=== PATIENT | female | born 1985 | race Asian ===

== ENCOUNTER → 2016-08-22 | Outpatient (CLI) | payer OTHER ==
--- NOTE | 2016-08-22 12:49 | DX ---
Left wrist, 4 views. HISTORY: Hurt wrist last night during kickboxing. FINDINGS: Normal mineralization and alignment. No evidence for acute fracture or dislocation. No sign ificant joint narrowing, periarticular erosion, periarticular spurring. Impression: Unremarkable left wrist.
== END ==
LOC: BMCIMAGING 12:06
PROVIDERS: ATTEND Family Medicine
DX: M25.532 Pain in left wrist (principal)

== ENCOUNTER → 2016-10-29 | Outpatient (CLI) | payer OTHER | LOC: BMCIMAGING 12:13 | PROVIDERS: ATTEND Family Medicine | DX: M25.572 Pain in left ankle and joints of left foot (principal) ==

== ENCOUNTER → 2017-02-23 | Day surgery (SDC) | payer OTHER ==
--- NOTE | 2017-02-20 18:17 | GHP ---
[f rep st] PREOP HISTORY AND PHYSICAL DATE OF ADMISSION: 02/23/2017 ANTICIPATED DATE OF SURGERY: 02/23/2017. PROCEDURE TO BE PERFORMED: Suction dilation and curettage. DIAGNOSIS: Missed . HISTORY OF PRESENT ILLNESS: The patient is a 31-year-old, 1, para 0, with a last menstrual period of 12/18/2016, who presented for an ultrasound for viability of her on 02/09/2017. She had some 1st trimester bleeding. On that ultrasound there was a gestational sac with a yolk sa c, pole measuring 5 weeks 6 days without heart tones, and the gestational sac was irregu larly shaped. There was a large subchorionic hemorrhage. Patient had had an appropriate rise in be ta hCG, and as she had low progesterone level of 11.3, she was started on a progesterone supplementa tion and had a followup ultrasound in a week, on 02/19/2017. The ultrasound revealed a flattened ge stational sac with numerous complex echoes. A 3 mm embryo was seen with no cardiac activity. Diagn osis of missed was made. The patient was given treatment options of medical management gabby moi surgical management versus expectant management. Patient chose surgical management with a sucti on dilation curettage, and this is scheduled for Thursday02/23/2017. Patient is a G zero, this is he r first . Patient has no significant past gynecological history with regular monthly perio ds, and her last menstrual period was 12/18/2016. Denies history of abnormal Paps or STDs. No sign ificant past medical history, surgical history, or family history. REVIEW OF SYSTEMS: Her 10-point review of systems was negative for any complaints. No vaginal blee ding. No abdominal pain or any other symptoms. SOCIAL HISTORY: She is . She works as a pharmacist at [employer]. Denies tobacco. Social alcohol . No drug use. FAMILY HISTORY: Noncontributory. OBJECTIVE: VITAL SIGNS: Blood pressure is 118/68, weight is 136. GENERAL: She is a well-develope d, well-nourished, female, in no acute distress. LUNGS: Clear to auscultation bilaterally. HEART: Regular rate and rhythm. No murmurs. ABDOMEN: Soft, nontender, nondistended. Normal ganga l sounds. PELVIC: Will be deferred for the operating room. ASSESSMENT AND PLAN: A 31-year-old, 1, para 0, who is 9 weeks by dates with a missed aborti on. She will be consented for the procedure. The risks and benefits, including bleeding, infection , damage to the uterus (including possible risk of perforation), damage to other organs if perforati on were to occur, risk of incomplete removal with need for spontaneous expulsion or further procedur es at a later time, and compromise of future fertility. She understood these risks and benefits. /[id number]/MODL
[~2017-02-23] MED LIST: AMMONIA AROMATIC 1 EACH AMP IH ONE; DOXYCYCLINE INJ 100 MG in D5W 250 ML IV ONE; KETOROLAC 30 MG/1 ML SDV IVP PRN; LR 1,000 ML IV ONE; METHYLERGONOVINE MAL 0.2 MG/ML INJ ONE; MIDAZOLAM 2 MG/2 ML VIAL IVP ONE; MIDAZOLAM 2 MG/2 ML VIAL ONE; MISOPROSTOL 200 MCG TAB ONE; NALOXONE HCL 0.4 MG/ML INJ IVP PRN; ONDANSETRON 4 MG/2 ML VIAL IVP PRN; OXYTOCIN 10 UNIT/ML VIAL ONE; PROPOFOL/EMULSION 500 MG/50 ML BOTTLE IV ONE; SILVER NITRATE APPLICATOR 1 APPL TP ONE; TERBUTALINE SULFATE 1 MG/ML VIAL ONE
--- NOTE | 2017-02-23 09:33 | PDANEPAE ---
ANE History of Present Illness Missed Spontaneous at 8 weeks gestation ANE Past Medical History - Pulmonary History Hx Oxygen in Use at Home: No Hx Sleep Apnea: No - Endocrine History Hx Diabetes: No - Chronic Pain History Chronic Pain: No ANE Patient History - Allergies Allergies/Adverse Reactions: DOGS Allergy (Mild, Uncoded 04/29/12 17:40) SNEEZING/ITCHY EYES - Smoking Hx Smoking Status: Never smoked ANE Labs/Vital Signs - Vital Signs Height: 152.4 cm Weight: 62.142 kg
--- NOTE | 2017-02-23 09:34 | POSTANESTH ---
Post Anesthetic Evaluation Cardiovascular Status: Normal, Stable Respiratory Status: Normal, Stable Level of Consciousness/Mental Status: Can Participate in Eval Pain Control: Adequate, Prn Tx Ordered Nausea/Vomiting Control: Adequate, Prn Tx Ordered Complications Possibly Related to Anesthesia: None Noted Notes: BP elevated past Methergine, will follow in PACU
--- NOTE | 2017-02-23 11:18 | GOP ---
[f rep st] OPERATIVE REPORT DATE OF OPERATION: 02/23/2017 SURGEON: Leidy Marrufo MD ANESTHESIA: General. ANESTHESIOLOGIST: Yehuda Schuler M.D. PREOPERATIVE DIAGNOSIS: Intrauterine with a missed at 9 weeks by dates, 7 weeks by size. POSTOPERATIVE DIAGNOSIS: Missed . PROCEDURE PERFORMED: Suction dilation curettage. FINDINGS: SPECIMENS: Pathologic specimen will be products of conception. ESTIMATED BLOOD LOSS: For the procedure was 100 mL. INDICATIONS: The patient is a 31-year-old 1, para 0, with a last menstrual period of 2016, who presented for an ultrasound for viability of on 02/09/2017. She had first trime ster bleeding. On that ultrasound, she had a gestational sac with a yolk sac and a pole measu ring 5 weeks and 6 days, without heart tones. Gestational sac was irregularly shaped and ther e was a large subchorionic hemorrhage. The patient was given progesterone supplementation and had a followup ultrasound a week later, which showed a flattened gestational sac, multiple numerous echoe s and no heart tones with heartbeat. The diagnosis of missed was made. The patient was given treatment options of medical management versus surgical management versus expectant, and s he desired surgical management with a suction dilation and curettage. The patient was consented for the procedure. She understood the risks and benefits, the risks inclu ding bleeding, infection, damage to the uterus including possible risk of perforation, damage to oth er organs if perforation were to occur, incomplete treatment with retained tissue, need for spontane ous expulsion and/or repeat procedure at a later time, and compromise of future fertility. The claudia ent understood these risks and benefits, and agreed to proceed. DESCRIPTION OF PROCEDURE: The patient was taken to the operating room where she was placed under ge neral anesthesia without difficulty. She was prepped and draped in the dorsal lithotomy position. A WHO time-out was performed. An open-sided speculum was placed in the vagina and a Bryant tenaculum was used to grasp the anterio r lip of the cervix. A uterine sound was gently advanced from the cervix to the fundus, and the kob[place] wil sounded to 8 cm. The cervix was then progressively dilated with Servin dilators to a #8. A #8 c urved suction curette was then gently advanced to the fundus, suction was applied and tissue was obt ained with several passes of the suction device. Sharp curettage was then performed in a clockwise fashion. There was a fair amount of active bleedi ng with curettage and no tissue was palpated. Suction was applied again and there was no tissue, ju st blood. The patient was given a dose of IM methargen as well as Pitocin was placed in her IV fluids. Transvaginal ultrasound was performed and there was no tissue, just further blood. One final passage of the suction device was performed, and there was again assurance that no further tissue was obtained and the uterus was clamping down with the medication, and good hemostasis was o btained. The tenaculum was removed. There was no further bleeding. The patient tolerated the procedure well . Sponge, lap, needle, and instrument counts were correct x2. The patient went to the recovery elza in good condition. FLUIDS REPLACED: 1000 mL. URINE OUTPUT: Not measured. /[id number]/MODL
== END | disposition home or self-care (01) ==
LOC: FOBOP 05:56
PROVIDERS: ATTEND Obstetrics & Gynecology
PROC: 10D17ZZ Extraction of Products of Conception, Retained, Via Natural or Artificial Opening (ICD-10-PCS; principal; 2017-02-23)
DX: O02.1 Missed abortion (principal)
CPT/HCPCS: J1885; J2210; J2250; J2704; J3105

== ENCOUNTER → 2017-05-05 | Outpatient (CLI) | payer OTHER | LOC: BMCIMAGING 16:26 | PROVIDERS: ATTEND Physician Assistant | DX: M25.551 Pain in right hip (principal) ==

== ENCOUNTER → 2017-05-11 | Outpatient (CLI) | payer OTHER | LOC: FIMAGING 10:33 | PROVIDERS: ATTEND Physician Assistant | DX: M25.851 Other specified joint disorders, right hip (principal) ==

== ENCOUNTER 2018-12-16 16:10 | Inpatient (IN) | payer OTHER ==
[2018-12-16] MEDS ORDERED: OXYTOCIN/RINGERS LACTATE 1,000 ML IV PRN (16:18)
[2018-12-16] MEDS ORDERED: EPSOM SALT 454 GM TP PRN (16:18)
[2018-12-16] MEDS ORDERED: MISOPROSTOL 200 MCG TAB PR PRN (16:18)
[2018-12-16] MEDS ORDERED: LIDOCAINE 1% 300 MG/30 ML SDV SC PRN (16:18)
[2018-12-16] MEDS ORDERED: OLIVE OIL 118 ML BTL MISC PRN (16:18)
[2018-12-16] MEDS ORDERED: IBUPROFEN 600 MG TAB PO PRN (16:18)
[2018-12-16] MEDS ORDERED: LIDOCAINE 1% 300 MG/30 ML SDV ONE (16:45)
[2018-12-16] MEDS ORDERED: OLIVE OIL 118 ML BTL MISC ONE (16:45)
[2018-12-16] MEDS ORDERED: AMMONIA AROMATIC 1 EACH AMP IH ONE (16:46)
[2018-12-16] MEDS ORDERED: OXYTOCIN 10 UNIT/ML VIAL ONE (16:46)
[2018-12-16] MEDS ORDERED: TERBUTALINE SULFATE 1 MG/ML VIAL ONE (16:46)
[2018-12-16] MEDS ORDERED: MISOPROSTOL 200 MCG TAB ONE (16:46)
[2018-12-16 17:10] LABS: PLATELET COUNT 142 10^3/uL (150-400)
[2018-12-16] MEDS ORDERED: hydrALAZINE 20 MG/ML VIAL IVP ONE ×2 (17:45→23:00)
[2018-12-16] MEDS: LR 1,000 ML IV PRN ×2 (18:10→22:42)
[2018-12-16] MEDS ORDERED: fentaNYL 2MCG/ML/BUP 0.1% RTU 100 ML BAG EP ONE (18:36)
[2018-12-16] MEDS ORDERED: PHENYLEPHRINE HCL 100 MCG/ML SYR ONE (18:36)
--- NOTE | 2018-12-16 18:41 | GHP ---
[f rep st] HISTORY AND PHYSICAL DATE OF ADMISSION: 12/16/2018 ADMITTING DIAGNOSIS: 1. Intrauterine at 38 2/7 weeks 2. Active labor 3. Gestational Hypertension, ?chronic hypertension HISTORY OF PRESENT ILLNESS: Patient is a 33-year-old, 2, para 0-0-1-0 at 38 weeks and 2 days with estimated due date 12/28/2018 by LMP 03/23/2018, and consistent with ultrasound at 10 weeks and 4 days. The patient presented to my office today with complaints of contractions that started at 0230 this morning. They were every 7 to 10 minutes and she states pain 6/10. Denies any leakage of fluid or any vaginal bleeding. States good movement. The patient was seen in my office earlier today, and found to be 1-2 cm, 70% effaced, and -2 station. Membranes were stripped. Labor precautions given. Two hours later, patient presented back to my office stating contractions are now closer every 3- 4 minutes and the pain is about 8/10. She notes some pink-red spotting, but no leakage of fluid and baby is still moving well. On exam, she was now 4 cm, 80% effaced, and -2 station, bulging bag of jimenez. The patient was sent over to Labor and Delivery for admission. Labor and Delivery was notified. The patient denies any headaches, visual changes or any RUQ/epigastric pain. The patient was initially seen in her first trimester by [facility] and had en elevated blood pressure of 134/92 at 10 weeks, 2 days and was started on Labetalol twice daily. The patient was non-compliant and stopped Labetalol in July 2018. She was told to transfer care to [facility] secondary to chronic hypertension in and risk of developing superimposed preeclampsia. There were some elevated blood pressures in 2nd trimester, 130-140s over 90-100s and then 3rd trimester blood pressures were lower until 32-34 weeks and consistently 130/80s. The patient had no symptoms and continues to have no symptoms at this time. Initial baseline PIH labs were normal with no proteinuria and at 28 weeks, another set of baseline labs were done that were normal, except there was an elevated 24-hour urine protein at 338 mg. Growth ultrasounds in third trimester at 32 and 35 weeks revealed normal growth at 31% and 32% with normal fluid. The patient is advanced maternal age and had negative NIPT and normal anatomy scan. She has history of infertility secondary to PCOS, but this was a spontaneous conception. There was an elevated 1-hour Glucola of 131 and then repeated it was 107. The patient did receive Tdap in 11/03/18. GBS culture is negative. PAST OB HISTORY: SAB in 2017. MENSTRUAL HISTORY: Age of menarche: 10. Cycles are every 28 days for 4-6 days. LMP 03/23/2018. The patient denies a history of any abnormal Pap smears or any exposure to any STDs. CURRENT MEDICATIONS: Include vitamins and vitamin D. ALLERGIES: No known drug allergies. PAST MEDICAL HISTORY: Remarkable for PCOS, infertility, elevated prolactin and likely chronic hypertension. PAST SURGICAL HISTORY: D and C in 2015 and tibia repair in 2012. PAST FAMILY HISTORY: Mother and Father: Hypertension. Father and maternal grandfather: Hypercholesterolemia. Paternal grandmother: Diabetes. SOCIAL HISTORY: Patient is and lives with her , Brandin. She is a pharmacist. Denies any alcohol, tobacco or any illicit drug use currently. LABS: First trimester H and H, 14.9 and 43.8, platelets 225. Blood type B-positive, antibody negative. RPR nonreactive. Rubella unknown. Hepatitis B surface antigen negative. HIV nonreactive. Urine drug screen. UA and culture negative. Pap smear negative 01/2016 with negative HPV. Gonorrhea and chlamydia cultures negative 06/2018. Councyl was negative 06/03/2018. Single AFP negative. Third trimester H and H, 13.0 and 38.4, platelets 195. One-hour Glucola 131, and then repeated 107. PIH labs normal. 24-hour urine elevated at 338 mg. GBS culture is negative. REVIEW OF SYSTEMS: A 10-point review of systems was negative. Pertinent positives under HPI. PHYSICAL EXAMINATION: VITAL SIGNS: On admission, the patient is afebrile at 37.2, respirations 16, heart rate 83, initial blood pressure was 1179/119, 68/ 103, 152/103, 146/104, 154/109, 141/99, 136/93 about 10-15 minutes apart. Most recent blood pressure is 135/95 on her left side without treatment. GENERAL: The patient is well-nourished, well-developed female. Alert and oriented x3. Mild distress secondary to pain with contractions. SKIN: Warm, dry without rash. NEURO: Grossly intact. CARDIOVASCULAR: Regular rate and rhythm. LUNGS : Clear to auscultation bilaterally. ABDOMEN: Gravid, soft, and nontender. PELVIC: On exam, 4 cm dilated, 80% effaced, -2 station, bulging bag of jimenez, vertex. EXTREMITIES: There is pedal edema noted. No calf tenderness. 2+ plantar reflexes and no clonus. ASSESSMENT/PLAN: Patient is a 33-year-old, 2, para 0-0-1-0 at 38 weeks , 2 days who presents in active labor with elevated blood pressures. 1. Admit to Labor and Delivery for expectant management. 2. GBS culture is negative, no prophylactic antibiotics are needed. 3. With elevated blood pressures upon admission, PIH labs were obtained: H and H,14.9 and 42.6, platelets are 142, creatinine 0.5, AST 23, ALT 17, LDH 544. P to C ratio was 0.14 consistent with 136 mg. Patient is asymptomatic at this time. BPs did improve without treatment when she was placed on her left side. Will not start MgSO4 at this time since BPs improved on their own, pt is asymptomatic without severe features and PIH labs are normal. 4. Consulted with [facility] who agrees with the plan of not starting MgSO4 at this time, but would recommend starting it if severe features develop and/or BPs become elevated in severe range. Will continue to closely monitor. 5. Patient desires an epidural for pain. 6. Anticipate . /[id number]/MODL MTDD
[2018-12-16] MEDS ORDERED: PHENYLEPHRINE HCL 100 MCG/ML SYR IVP PRN (19:11)
--- NOTE | 2018-12-16 19:11 | PREANESOB ---
Obstetric Pre-Anesthesia Info - General Info Proposed Procedure: JOVANY : 2 Para: 0 LIGIA: 12/28/18 Gestational Age: 38 week(s) and 2 day(s) - Info Status: Full Term, Palmer Monitors: External FHR Pattern: Reassuring - Labor Status Cervical Dilation per last OB SVE: 4 PIH: Mild (No current treatment.) Indications for Labor Analgesia: Pain Control Labor Epidural: Proposed Anesthesia Allergies/Adverse Reactions: Allergy/AdvReac Type Severity Reaction Status Date / Time DOGS Allergy Mild SNEEZING/ITCHY Uncoded 04/29/12 17:40 EYES Home Medications: Medication Instructions Recorded Caplet 12/16/18 Visit Medications: Generic Name Dose Route Start Last Admin Trade Name Freq PRN Reason Stop Dose Admin Lactated Ringer's 1,000 mls @ 0 mls/hr 12/16/18 16:18 12/16/18 18:10 Lr IV 12/17/18 16:17 1,000 mls PRN PRN Administration SEE PROTOCOL CONDITIONS Protocol Per Protocol Oxytocin/Lactated Ringer's 1,000 mls @ 125 mls/hr 12/16/18 16:18 Pitocin 20 Units/Lr (Premix) IV PRN PRN Post bleeding Ibuprofen 600 mg 12/16/18 16:18 Motrin PO ONCE PRN post , pain Lidocaine HCl 300 mg 12/16/18 16:18 Lidocaine Hcl 1% SC 06/14/19 16:17 ONCE PRN episiotomy Magnesium Sulfate 454 gm 12/16/18 16:18 Epsom Salt TP 06/14/19 16:17 Q1H PRN perineal discomfort Misoprostol 800 - 1,000 mcg 12/16/18 16:18 Cytotec CA ONCE PRN Vaginal Atony/Bleeding Damascus Oil 118 ml 12/16/18 16:18 Sweet Oil MISC 06/14/19 16:17 ONCE PRN perineal massage Discontinued Medications Generic Name Dose Route Start Last Admin Trade Name Freq PRN Reason Stop Dose Admin Ammonia (Aromatic Spirit) Confirm 12/16/18 16:46 Ammonia Aromatic Administered 12/16/18 16:47 Dose 1 each IH .STK-MED ONE Fentanyl/Bupivacaine HCl Confirm 12/16/18 18:36 Fentanyl/Bupivacaine/Ns 2 Mcg/Ml 0.1% (Premix Administered 12/16/18 18:37 Dose 100 ml EP .STK-MED ONE Hydralazine HCl 5 mg 12/16/18 17:45 Apresoline IVP 12/16/18 17:46 ONCE ONE Lidocaine HCl Confirm 12/16/18 16:45 Lidocaine Hcl 1% Administered 12/16/18 16:46 Dose 300 mg .ROUTE .STK-MED ONE Misoprostol Confirm 12/16/18 16:46 Cytotec Administered 12/16/18 16:47 Dose 1,000 mcg .ROUTE .STK-MED ONE Damascus Oil Confirm 12/16/18 16:45 Sweet Oil Administered 12/16/18 16:46 Dose 118 ml MISC .STK-MED ONE Oxytocin Confirm 12/16/18 16:46 Pitocin Administered 12/16/18 16:47 Dose 40 unit .ROUTE .STK-MED ONE Phenylephrine HCl Confirm 12/16/18 18:36 Neosynephrine Administered 12/16/18 18:37 Dose 1,000 mcg .ROUTE .STK-MED ONE Terbutaline Sulfate Confirm 12/16/18 16:46 Brethine Administered 12/16/18 16:47 Dose 1 mg .ROUTE .STK-MED ONE - Anesthesia History Response to Local Anesthetics: Normal Anesthesia & Operative History: No Prior Problems - Vital Signs Height/Weight (Nursing): Height 152.4 cm Weight 73.709 kg - Focused Exam Neck exam: FROM Mallampati Score: Class 2 Mouth exam: normal dental/mouth exam Pulmonary: no respiratory distress, no rales or rhonchi, clear to auscultation Cardiovascular: regular rate and rhythym, no murmur, rub, or gallop Labs: 12/16/18 16:45 12/16/18 16:45 Patient ABO/Rh B POSITIVE 12/16/18 16:45 Uric Acid 5.0 mg/dL (2.5-6.8) 12/16/18 16:45 Total Bilirubin 0.3 mg/dL (0.1-1.4) 12/16/18 16:45 Conjugated Bilirubin 0.0 mg/dL (0.0-0.5) 12/16/18 16:45 Unconjugated Bilirubin 0.3 mg/dL (0.0-1.1) 12/16/18 16:45 AST 23 IU/L (14-46) 12/16/18 16:45 ALT 17 IU/L (9-52) 12/16/18 16:45 Lactate Dehydrogenase 544 IU/L (313-618) 12/16/18 16:45
[2018-12-16] MEDS ORDERED: LR 500 ML IV SCH (19:30)
--- NOTE | 2018-12-16 19:52 | OBPROG ---
Labor Progress Note Assessment/Plan: Assessment: 33 y/o @ 38 2/7 wks in active labor with elevated BPs Plan: Continue expectant management Pt is comfortable, s/p epidural BPs 130-150/80-90s, will cont to closely monitor; pt remains asymptomatic AROM-large amount clear fluid noted FHTs- Cat I tracing, reassuring Will reassess in a few hours for cervical change 12/16/18 19:47 Subjective/Intrapartum Course: Pt is comfortable, s/p epidural with no complaints. Denies any HAs, visual changes, or any RUQ/epigastric pain. 12/16/18 20:05 Objective: 12/16/18 16:45 12/16/18 16:45 Patient ABO/Rh B POSITIVE 12/16/18 16:45 Uric Acid 5.0 mg/dL (2.5-6.8) 12/16/18 16:45 Total Bilirubin 0.3 mg/dL (0.1-1.4) 12/16/18 16:45 Conjugated Bilirubin 0.0 mg/dL (0.0-0.5) 12/16/18 16:45 Unconjugated Bilirubin 0.3 mg/dL (0.0-1.1) 12/16/18 16:45 AST 23 IU/L (14-46) 12/16/18 16:45 ALT 17 IU/L (9-52) 12/16/18 16:45 Lactate Dehydrogenase 544 IU/L (313-618) 12/16/18 16:45 - SVE Dilation (cm): 6 Effacement (%): 80 Station: -1 Membranes: AROM Amniotic Fluid Color: Clear (large amount fluid noted) - Contraction Pattern Assessment Current Contraction Pattern: Regular (q3-4 min) - FHR Assessment Palmer FHR (bpm): 135 FHR Pattern Variability: Moderate FHR Category: 1 - Procedures Non-surgical Procedures: Amniotomy - AP Antepartum Course: Likely Chronic HTN-stopped Labetalol 07/2018-was started on it in first trimester by midwives and noncompliant; elev BPs in second trimester 130-140/80- 90s; growth u/s in third trimester with EFW 31% and normal fluid PCOS, infertility and elevaterd prolactin-conceived spontaneously AMA with neg NIPT and normal anatomy scan GBS negative Rubella status unknown 12/16/18 20:04 Oxytocin Orders Assessment - Pre-Induction/Augmentation Assessment Gestational Age: 38 week(s) and 2 day(s) ICD10 Worksheet Patient Problems: Problems Problem Status Onset Chronic hypertension affecting Acute Normal labor and delivery Acute - ICD10 Problem Qualifiers (1) Normal labor and delivery (2) Chronic hypertension affecting
--- NOTE | 2018-12-16 21:52 | OBPROG ---
Labor Progress Note Assessment/Plan: Assessment: 33 y/o @ 38 2/7 wks in active labor with elevated BPs Plan: Continue expectant management Pt is starting to feel an increase in pressure and intermittent rectal pressure On exam, SVE: 6-7/90/-1 IUPC placed without difficulty; if not adequate labor will augment with Pitocin FHTs - Cat I tracing, reassuring BPs stable at 130-140/80-90s, will cont to closely monitor Will reassess in a few hours for cervical change or sooner prn 12/16/18 21:46 Subjective/Intrapartum Course: Pt is comfortable, s/p epidural with no complaints. Denies any HAs, visual changes, or any RUQ/epigastric pain. 12/16/18 20:05 Objective: 12/16/18 16:45 12/16/18 16:45 Patient ABO/Rh B POSITIVE 12/16/18 16:45 Uric Acid 5.0 mg/dL (2.5-6.8) 12/16/18 16:45 Total Bilirubin 0.3 mg/dL (0.1-1.4) 12/16/18 16:45 Conjugated Bilirubin 0.0 mg/dL (0.0-0.5) 12/16/18 16:45 Unconjugated Bilirubin 0.3 mg/dL (0.0-1.1) 12/16/18 16:45 AST 23 IU/L (14-46) 12/16/18 16:45 ALT 17 IU/L (9-52) 12/16/18 16:45 Lactate Dehydrogenase 544 IU/L (313-618) 12/16/18 16:45 - SVE Dilation (cm): 7 (6-7) Effacement (%): 90 Station: -1 Membranes: AROM Amniotic Fluid Color: Clear (large amount fluid noted) - Contraction Pattern Assessment Current Contraction Pattern: Regular (q3-4 min) - FHR Assessment Palmer FHR (bpm): 130 FHR Pattern Variability: Moderate FHR Category: 1 - Procedures Non-surgical Procedures: Amniotomy, IUPC - AP Antepartum Course: Likely Chronic HTN-stopped Labetalol 07/2018-was started on it in first trimester by midwives and noncompliant; elev BPs in second trimester 130-140/80- 90s; growth u/s in third trimester with EFW 31% and normal fluid PCOS, infertility and elevaterd prolactin-conceived spontaneously AMA with neg NIPT and normal anatomy scan GBS negative Rubella status unknown 12/16/18 20:04 Oxytocin Orders Assessment - Pre-Induction/Augmentation Assessment Gestational Age: 38 week(s) and 2 day(s) ICD10 Worksheet Patient Problems: Problems Problem Status Onset Chronic hypertension affecting Acute Normal labor and delivery Acute - ICD10 Problem Qualifiers (1) Normal labor and delivery (2) Chronic hypertension affecting
[2018-12-16] MEDS ORDERED: LR 500 ML IV PRN (22:02)
[2018-12-16] MEDS ORDERED: CALCIUM GLUC 10% 1 GM/10 ML VIAL IVP PRN (22:21)
--- NOTE | 2018-12-16 22:25 | OBPROG ---
Labor Progress Note Assessment/Plan: Assessment: 33 y/o @ 38 2/7 wks in active labor now with severe-range BPs Plan: Will start MgSO4 per protocol for seizure prophylaxis-4gm loading dose then 2gm maintenance Cullen already in place with strict I&Os, NPO except meds- pt is aware and understands risks Will given Hydralazine with BPs >160/110 prn Cont to closely monitor BPs FHTs - Category II strip with mild intermittent variable decels Will augment with Pitocin since MVUs 110-125 To keep total IVFs at 125cc/hr 12/16/18 22:30 Subjective/Intrapartum Course: Pt is comfortable, s/p epidural with no complaints. Denies any HAs, visual changes, or any RUQ/epigastric pain. 12/16/18 20:05 12/16/18 22:31 Pt is c/o pain in her lower abdomen with ctx's and is still feeling pressure Objective: 12/16/18 16:45 12/16/18 16:45 Patient ABO/Rh B POSITIVE 12/16/18 16:45 Uric Acid 5.0 mg/dL (2.5-6.8) 12/16/18 16:45 Total Bilirubin 0.3 mg/dL (0.1-1.4) 12/16/18 16:45 Conjugated Bilirubin 0.0 mg/dL (0.0-0.5) 12/16/18 16:45 Unconjugated Bilirubin 0.3 mg/dL (0.0-1.1) 12/16/18 16:45 AST 23 IU/L (14-46) 12/16/18 16:45 ALT 17 IU/L (9-52) 12/16/18 16:45 Lactate Dehydrogenase 544 IU/L (313-618) 12/16/18 16:45 - SVE Membranes: AROM Amniotic Fluid Color: Clear (large amount fluid noted) - Contraction Pattern Assessment Current Contraction Pattern: Regular (q3-4 min) - FHR Assessment Palmer FHR (bpm): 130 FHR Pattern Variability: Moderate FHR Category: 2 (mild, intermittent variable decels) - Procedures Non-surgical Procedures: Amniotomy, IUPC - AP Antepartum Course: Likely Chronic HTN-stopped Labetalol 07/2018-was started on it in first trimester by midwives and noncompliant; elev BPs in second trimester 130-140/80- 90s; growth u/s in third trimester with EFW 31% and normal fluid PCOS, infertility and elevaterd prolactin-conceived spontaneously AMA with neg NIPT and normal anatomy scan GBS negative Rubella status unknown 12/16/18 20:04 Oxytocin Orders Assessment - Pre-Induction/Augmentation Assessment Gestational Age: 38 week(s) and 2 day(s) - Induction/Augmentation Consent Risks/Benefits of Procedure Reviewed/Pt Agrees to Proceed: Yes ICD10 Worksheet Patient Problems: Problems Problem Status Onset Chronic hypertension affecting Acute Normal labor and delivery Acute - ICD10 Problem Qualifiers (1) Normal labor and delivery (2) Chronic hypertension affecting
[2018-12-16] MEDS ORDERED: MAGNESIUM SULF 4 GM/WATER 100 ML IV ONE (22:29)
[2018-12-16] MEDS ORDERED: OXYTOCIN/RINGERS LACTATE 500 ML IV SCH (22:30)
[2018-12-16] MEDS: Mag Sulf 500 ML IV SCH (23:28)
[2018-12-16] MEDS: fentaNYL 2MCG/ML/BUP 0.1% RTU 100 ML EP SCH (23:30)
[2018-12-17] MEDS ORDERED: BUPIVACAINE 0.25% 10 ML SDV ONE (00:01)
[2018-12-17] MEDS ORDERED: ONDANSETRON 4 MG/2 ML VIAL IVP PRN (01:51)
--- NOTE | 2018-12-17 02:03 | OBPROG ---
Labor Progress Note Assessment/Plan: Assessment: 33 y/o @ 38 2/7 wks in active labor now with severe-range BPs Plan: Continue current management Pt now more comfortable, was bolused by Dr. Norton at 0015-still notes rectal pressure, but only during ctx's SVE by RN: 7-8/90/0 Pitocin at 4 mu/min; MVUs now adequate at 212-250 MgSO4 at 2gm/hr; UO over last 3 hours 45, 35 and 30 and bloody-will cont to closely monitor; fluids BPs after bolus 107-137/65-86 Will reassess in 2 hours or sooner prn 12/17/18 01:52 Subjective/Intrapartum Course: 12/16/18 20:05 Pt is comfortable, s/p epidural with no complaints. Denies any HAs, visual changes, or any RUQ/epigastric pain. 12/16/18 22:31 Pt is c/o pain in her lower abdomen with ctx's and is still feeling pressure 12/17/18 02:03 Pt is more comfortable now after bolus. She is feeling dizzy with lower BPs and has some nausea. Still notes rectal pressure, but only with ctx's. Denies any HAs, visual changes or RUQ pain. Objective: 12/16/18 16:45 12/16/18 16:45 Patient ABO/Rh B POSITIVE 12/16/18 16:45 Uric Acid 5.0 mg/dL (2.5-6.8) 12/16/18 16:45 Total Bilirubin 0.3 mg/dL (0.1-1.4) 12/16/18 16:45 Conjugated Bilirubin 0.0 mg/dL (0.0-0.5) 12/16/18 16:45 Unconjugated Bilirubin 0.3 mg/dL (0.0-1.1) 12/16/18 16:45 AST 23 IU/L (14-46) 12/16/18 16:45 ALT 17 IU/L (9-52) 12/16/18 16:45 Lactate Dehydrogenase 544 IU/L (313-618) 12/16/18 16:45 Temp Pulse Resp BP Pulse Ox 154/105 H 12/16/18 22:53 - SVE Dilation (cm): 8 (7-8) Effacement (%): 90 Station: 0 Membranes: AROM Amniotic Fluid Color: Clear (large amount fluid noted) - Contraction Pattern Assessment Current Contraction Pattern: Regular (q3-4 min) - FHR Assessment Palmer FHR (bpm): 140 FHR Pattern Variability: Moderate FHR Category: 2 (Mild, intermittent variable decels) - Procedures Non-surgical Procedures: Amniotomy, IUPC - AP Antepartum Course: Likely Chronic HTN-stopped Labetalol 07/2018-was started on it in first trimester by midwives and noncompliant; elev BPs in second trimester 130-140/80- 90s; growth u/s in third trimester with EFW 31% and normal fluid PCOS, infertility and elevaterd prolactin-conceived spontaneously AMA with neg NIPT and normal anatomy scan GBS negative Rubella status unknown 12/16/18 20:04 Oxytocin Orders Assessment - Pre-Induction/Augmentation Assessment Gestational Age: 38 week(s) and 2 day(s) ICD10 Worksheet Patient Problems: Problems Problem Status Onset Chronic hypertension affecting Acute Normal labor and delivery Acute - ICD10 Problem Qualifiers (1) Normal labor and delivery (2) Chronic hypertension affecting
--- NOTE | 2018-12-17 03:31 | OBPROG ---
Labor Progress Note Assessment/Plan: Assessment: 33 y/o @ 38 2/7 wks in active labor now with severe-range BPs Plan: I was notified by RN of decreased UO over the last hour at 15cc and prior to that 35 cc Bladder scan was done and revealed 18 cc and huang checked to see if draining properly Pt examined-lungs are CTA; reflexes +1-diminished; pt is asymptomatic-she was sleeping Suspect she is dry since she had vomited earlier and will give 300 cc bolus and cont to monitor BPs are good: 108-127/61-78 FHTs - Cat I tracing, reassuring Pitocin just increased to 5 mu/min Will recheck for cervical change at 0500 12/17/18 03:26 Subjective/Intrapartum Course: 12/16/18 20:05 Pt is comfortable, s/p epidural with no complaints. Denies any HAs, visual changes, or any RUQ/epigastric pain. 12/16/18 22:31 Pt is c/o pain in her lower abdomen with ctx's and is still feeling pressure 12/17/18 02:03 Pt is more comfortable now after bolus. She is feeling dizzy with lower BPs and has some nausea. Still notes rectal pressure, but only with ctx's. Denies any HAs, visual changes or RUQ pain. 12/17/18 03:34 Pt is sleeping now. Objective: 12/16/18 16:45 12/16/18 16:45 Patient ABO/Rh B POSITIVE 12/16/18 16:45 Uric Acid 5.0 mg/dL (2.5-6.8) 12/16/18 16:45 Total Bilirubin 0.3 mg/dL (0.1-1.4) 12/16/18 16:45 Conjugated Bilirubin 0.0 mg/dL (0.0-0.5) 12/16/18 16:45 Unconjugated Bilirubin 0.3 mg/dL (0.0-1.1) 12/16/18 16:45 AST 23 IU/L (14-46) 12/16/18 16:45 ALT 17 IU/L (9-52) 12/16/18 16:45 Lactate Dehydrogenase 544 IU/L (313-618) 12/16/18 16:45 Temp Pulse Resp BP Pulse Ox 154/105 H 12/16/18 22:53 - SVE Membranes: AROM Amniotic Fluid Color: Clear (large amount fluid noted) - Contraction Pattern Assessment Current Contraction Pattern: Regular (q3-4 min; MVU: 170-190s) - FHR Assessment Palmer FHR (bpm): 150 FHR Pattern Variability: Moderate FHR Category: 1 - Procedures Non-surgical Procedures: Amniotomy, IUPC - AP Antepartum Course: Likely Chronic HTN-stopped Labetalol 07/2018-was started on it in first trimester by midwives and noncompliant; elev BPs in second trimester 130-140/80- 90s; growth u/s in third trimester with EFW 31% and normal fluid PCOS, infertility and elevaterd prolactin-conceived spontaneously AMA with neg NIPT and normal anatomy scan GBS negative Rubella status unknown 12/16/18 20:04 - Physical Exam General Appearance: WD/WN, alert, no apparent distress Respiratory: lungs clear, normal breath sounds Extremities: non-tender, pedal edema DTR- Lower Extremities: Plantar (R): 1+, Plantar (L): 1+ Neuro/Psych: alert, normal mood/affect, oriented x 3 Oxytocin Orders Assessment - Pre-Induction/Augmentation Assessment Gestational Age: 38 week(s) and 2 day(s) ICD10 Worksheet Patient Problems: Problems Problem Status Onset Chronic hypertension affecting Acute Normal labor and delivery Acute - ICD10 Problem Qualifiers (1) Normal labor and delivery (2) Chronic hypertension affecting
[2018-12-17] MEDS: fentaNYL 2MCG/ML/BUP 0.1% RTU 100 ML EP SCH ×2 (04:47→09:17)
--- NOTE | 2018-12-17 06:02 | OBPROG ---
Labor Progress Note Assessment/Plan: Assessment: 33 y/o @ 38 2/7 wks in active labor now with severe-range BPs Plan: Pt was c/o pain in lower abdomen and feeling pressure; on exam by RN SVE: 8-9/ 100/0 Pt was positioned in high-fowlers and her BP dropped to 100/66 and she became dizzy and lightheaded Pt now on L side and BP slightly improved 107/69, pt feeling a lit bit better Pitocin at 6 mu/min and MVUs: 124-184 and not adequate so Pitocin increased to 8 mu/min, UO one hour after 300 cc bolus was 35cc and now 15cc; suspect pt is dry-she only received 1 L fluids prior to start of MgSO4 and then had vomiting; will give another 300 cc bolus; physical exam remains unremarkable Will check stat Mg level Had a long discussion with pt re: slow cervical change and times of inadequate labor; she has questions and concerns about how much longer it will take; pt offered a c/s at this time and she declined Plan to increase Pitocin until adequate MVUs and recheck cervix in 2 hours and if no real change, will proceed with a PCS-pt agrees with the plan FHTs - Cat I tracing, reassuring 12/17/18 05:45 Subjective/Intrapartum Course: 12/16/18 20:05 Pt is comfortable, s/p epidural with no complaints. Denies any HAs, visual changes, or any RUQ/epigastric pain. 12/16/18 22:31 Pt is c/o pain in her lower abdomen with ctx's and is still feeling pressure 12/17/18 02:03 Pt is more comfortable now after bolus. She is feeling dizzy with lower BPs and has some nausea. Still notes rectal pressure, but only with ctx's. Denies any HAs, visual changes or RUQ pain. 12/17/18 03:34 Pt is sleeping now. 12/17/18 06:02 Pt is c/o pain in lower abdomen with her ctx's. She also feels cold and groggy. States she "is over this" and questions how much longer it will take. Denies any HAs, visual changes or RUQ/epigastric pain but notes she is "forgetting to breath" and feels short of breath. Objective: 12/16/18 16:45 12/16/18 16:45 Patient ABO/Rh B POSITIVE 12/16/18 16:45 Uric Acid 5.0 mg/dL (2.5-6.8) 12/16/18 16:45 Total Bilirubin 0.3 mg/dL (0.1-1.4) 12/16/18 16:45 Conjugated Bilirubin 0.0 mg/dL (0.0-0.5) 12/16/18 16:45 Unconjugated Bilirubin 0.3 mg/dL (0.0-1.1) 12/16/18 16:45 AST 23 IU/L (14-46) 12/16/18 16:45 ALT 17 IU/L (9-52) 12/16/18 16:45 Lactate Dehydrogenase 544 IU/L (313-618) 12/16/18 16:45 Temp Pulse Resp BP Pulse Ox 154/105 H 12/16/18 22:53 - SVE Membranes: AROM Amniotic Fluid Color: Clear (large amount fluid noted) - Contraction Pattern Assessment Current Contraction Pattern: Regular (q3-4 min; MVU: 120-180s) - FHR Assessment Palmer FHR (bpm): 130 FHR Pattern Variability: Moderate FHR Category: 1 - Procedures Non-surgical Procedures: Amniotomy, IUPC - AP Antepartum Course: Likely Chronic HTN-stopped Labetalol 07/2018-was started on it in first trimester by midwives and noncompliant; elev BPs in second trimester 130-140/80- 90s; growth u/s in third trimester with EFW 31% and normal fluid PCOS, infertility and elevaterd prolactin-conceived spontaneously AMA with neg NIPT and normal anatomy scan GBS negative Rubella status unknown 12/16/18 20:04 - Physical Exam General Appearance: WD/WN, alert, no apparent distress Respiratory: lungs clear, normal breath sounds Extremities: non-tender, pedal edema DTR- Lower Extremities: Plantar (R): 1+, Plantar (L): 1+ (no clonus) Skin: normal color, warm/dry Neuro/Psych: alert, normal mood/affect, oriented x 3 Oxytocin Orders Assessment - Pre-Induction/Augmentation Assessment Gestational Age: 38 week(s) and 2 day(s) ICD10 Worksheet Patient Problems: Problems Problem Status Onset Chronic hypertension affecting Acute Normal labor and delivery Acute - ICD10 Problem Qualifiers (1) Normal labor and delivery (2) Chronic hypertension affecting
[2018-12-17 07:10] LABS: PLATELET COUNT 131 10^3/uL (150-400)
--- NOTE | 2018-12-17 07:58 | OBPROG ---
Labor Progress Note Assessment/Plan: Assessment: Plan: Subjective/Intrapartum Course: 12/16/18 20:05 Pt is comfortable, s/p epidural with no complaints. Denies any HAs, visual changes, or any RUQ/epigastric pain. 12/16/18 22:31 Pt is c/o pain in her lower abdomen with ctx's and is still feeling pressure 12/17/18 02:03 Pt is more comfortable now after bolus. She is feeling dizzy with lower BPs and has some nausea. Still notes rectal pressure, but only with ctx's. Denies any HAs, visual changes or RUQ pain. 12/17/18 03:34 Pt is sleeping now. 12/17/18 06:02 Pt is c/o pain in lower abdomen with her ctx's. She also feels cold and groggy. States she "is over this" and questions how much longer it will take. Denies any HAs, visual changes or RUQ/epigastric pain but notes she is "forgetting to breath" and feels short of breath. 12/17/18 07:54 i assumed care at 7 am. patient resting in room. IUPC was at 10 mu/. SVE done - /0. discussed exam finding with patient. patient obviously disappointed and frustrated. long discussion with patient about labor course. IUPC in place. contractions have not been adequate for the last several hours. will increase pitocin until adequate. will continue changing position. blood pressures stable. will reexamine 1-2 hours after patient adequate. discussed indications for c section. low urine output. fluid bolus given. will continue to follow closely. Objective: 12/17/18 06:45 12/17/18 05:50 Patient ABO/Rh B POSITIVE 12/16/18 16:45 Uric Acid 5.9 mg/dL (2.5-6.8) 12/17/18 05:50 Total Bilirubin 0.3 mg/dL (0.1-1.4) 12/16/18 16:45 Conjugated Bilirubin 0.0 mg/dL (0.0-0.5) 12/16/18 16:45 Unconjugated Bilirubin 0.3 mg/dL (0.0-1.1) 12/16/18 16:45 AST 25 IU/L (14-46) 12/17/18 05:50 ALT 31 IU/L (9-52) 12/17/18 05:50 Lactate Dehydrogenase 591 IU/L (313-618) 12/17/18 05:50 Temp Pulse Resp BP Pulse Ox 154/105 H 12/16/18 22:53 - SVE Dilation (cm): 6, 7 Effacement (%): 90 Station: 0 Membranes: AROM Amniotic Fluid Color: Clear (large amount fluid noted) - Contraction Pattern Assessment Current Contraction Pattern: Regular (q3-4 min; MVU: 120-180s) - Procedures Non-surgical Procedures: Amniotomy, IUPC - AP Antepartum Course: Likely Chronic HTN-stopped Labetalol 07/2018-was started on it in first trimester by midwives and noncompliant; elev BPs in second trimester 130-140/80- 90s; growth u/s in third trimester with EFW 31% and normal fluid PCOS, infertility and elevaterd prolactin-conceived spontaneously AMA with neg NIPT and normal anatomy scan GBS negative Rubella status unknown 12/16/18 20:04 Oxytocin Orders Assessment - Pre-Induction/Augmentation Assessment Gestational Age: 38 week(s) and 2 day(s) ICD10 Worksheet Patient Problems: Problems Problem Status Onset Chronic hypertension affecting Acute Normal labor and delivery Acute
[2018-12-17] MEDS: Mag Sulf 500 ML IV SCH ×2 (10:09→21:13)
--- NOTE | 2018-12-17 10:21 | OBPROG ---
Labor Progress Note Assessment/Plan: Assessment: Plan: Subjective/Intrapartum Course: 12/16/18 20:05 Pt is comfortable, s/p epidural with no complaints. Denies any HAs, visual changes, or any RUQ/epigastric pain. 12/16/18 22:31 Pt is c/o pain in her lower abdomen with ctx's and is still feeling pressure 12/17/18 02:03 Pt is more comfortable now after bolus. She is feeling dizzy with lower BPs and has some nausea. Still notes rectal pressure, but only with ctx's. Denies any HAs, visual changes or RUQ pain. 12/17/18 03:34 Pt is sleeping now. 12/17/18 06:02 Pt is c/o pain in lower abdomen with her ctx's. She also feels cold and groggy. States she "is over this" and questions how much longer it will take. Denies any HAs, visual changes or RUQ/epigastric pain but notes she is "forgetting to breath" and feels short of breath. 12/17/18 07:54 i assumed care at 7 am. patient resting in room. IUPC was at 10 mu/. SVE done - /0. discussed exam finding with patient. patient obviously disappointed and frustrated. long discussion with patient about labor course. IUPC in place. contractions have not been adequate for the last several hours. will increase pitocin until adequate. will continue changing position. blood pressures stable. will reexamine 1-2 hours after patient adequate. discussed indications for c section. low urine output. fluid bolus given. will continue to follow closely. 12/17/18 10:19 patient complete and pushing. uring bloody but catheter feels like it is low. will remove catheter and replace post . contractions adequate. status reassuring. had episode of low blood pressure but is better now. used nitrous oxide for hip and pelvic discomfort and was able to do position changes. Objective: 12/17/18 06:45 12/17/18 05:50 Patient ABO/Rh B POSITIVE 12/16/18 16:45 Uric Acid 5.9 mg/dL (2.5-6.8) 12/17/18 05:50 Total Bilirubin 0.3 mg/dL (0.1-1.4) 12/16/18 16:45 Conjugated Bilirubin 0.0 mg/dL (0.0-0.5) 12/16/18 16:45 Unconjugated Bilirubin 0.3 mg/dL (0.0-1.1) 12/16/18 16:45 AST 25 IU/L (14-46) 12/17/18 05:50 ALT 31 IU/L (9-52) 12/17/18 05:50 Lactate Dehydrogenase 591 IU/L (313-618) 12/17/18 05:50 Temp Pulse Resp BP Pulse Ox 154/105 H 12/16/18 22:53 - SVE Dilation (cm): 10 Effacement (%): 100 Station: +1 Membranes: AROM Amniotic Fluid Color: Clear (large amount fluid noted) - Contraction Pattern Assessment Current Contraction Pattern: Regular (q3-4 min; MVU: 120-180s) - Procedures Non-surgical Procedures: Amniotomy, IUPC - AP Antepartum Course: Likely Chronic HTN-stopped Labetalol 07/2018-was started on it in first trimester by midwives and noncompliant; elev BPs in second trimester 130-140/80- 90s; growth u/s in third trimester with EFW 31% and normal fluid PCOS, infertility and elevaterd prolactin-conceived spontaneously AMA with neg NIPT and normal anatomy scan GBS negative Rubella status unknown 12/16/18 20:04 Oxytocin Orders Assessment - Pre-Induction/Augmentation Assessment Gestational Age: 38 week(s) and 2 day(s) ICD10 Worksheet Patient Problems: Problems Problem Status Onset Chronic hypertension affecting Acute Normal labor and delivery Acute
[2018-12-17] MEDS ORDERED: HYDROCORTISONE 0.5% CREAM TP PRN (11:38)
[2018-12-17] MEDS ORDERED: oxyCODONE IR 5 MG TAB PO PRN (11:38)
[2018-12-17] MEDS ORDERED: SIMETHICONE 80 MG TAB CHEW PO PRN (11:38)
--- NOTE | 2018-12-17 11:38 | OBDEL ---
Info Type: Vaginal Presentation at Delivery: Vertex L&D Analgesia/Anesthesia Type: Epidural GBS+: No Intrapartum Medications: Generic Name Dose Route Start Last Admin Trade Name Rafy PRN Reason Stop Dose Admin Lactated Ringer's 1,000 mls @ 0 mls/hr 12/16/18 16:18 12/16/18 22:42 Lr IV 12/17/18 16:17 1,000 mls PRN PRN Administration SEE PROTOCOL CONDITIONS Protocol Per Protocol Fentanyl/Bupivacaine HCl 100 mls @ 0 mls/hr 12/16/18 19:30 12/17/18 09:17 Fentanyl/Bupivacaine/Ns 2 Mcg/Ml 0.1% (Premix EP 12/26/18 19:29 100 mls CONT DANIELE Administration Protocol As Directed Oxytocin/Lactated Ringer's 500 mls @ 0 mls/hr 12/16/18 22:30 12/16/18 22:42 Pitocin 30 Units/Lr (Premix) IV 06/14/19 22:29 500 mls CONT DANIELE Administration Protocol Per Protocol Magnesium Sulfate 500 mls @ 50 mls/hr 12/16/18 22:30 12/17/18 10:09 Magnesium Sulfate 20 Gm/ 500 Ml (Premix) IV 06/14/19 22:29 500 mls CONT DANIELE Administration Ondansetron HCl 4 mg 12/17/18 01:51 12/17/18 02:13 Zofran IVP 06/15/19 01:50 4 mg Q4HRS PRN Administration Nausea/Vomiting, Can't Take PO Phenylephrine HCl 100 mcg 12/16/18 19:11 12/17/18 00:58 Neosynephrine IVP 06/14/19 19:10 100 mcg .Q2M PRN Administration Hypotension Discontinued Medications Generic Name Dose Route Start Last Admin Trade Name Rafy PRN Reason Stop Dose Admin Magnesium Sulfate 100 mls @ 200 mls/hr 12/16/18 22:29 12/16/18 22:43 Magnesium Sulf 4 Gm (Premix) IV 12/16/18 22:58 100 mls ONCE ONE Administration - Hospital Course Intrapartum: 12/16/18 20:05 Pt is comfortable, s/p epidural with no complaints. Denies any HAs, visual changes, or any RUQ/epigastric pain. 12/16/18 22:31 Pt is c/o pain in her lower abdomen with ctx's and is still feeling pressure 12/17/18 02:03 Pt is more comfortable now after bolus. She is feeling dizzy with lower BPs and has some nausea. Still notes rectal pressure, but only with ctx's. Denies any HAs, visual changes or RUQ pain. 12/17/18 03:34 Pt is sleeping now. 12/17/18 06:02 Pt is c/o pain in lower abdomen with her ctx's. She also feels cold and groggy. States she "is over this" and questions how much longer it will take. Denies any HAs, visual changes or RUQ/epigastric pain but notes she is "forgetting to breath" and feels short of breath. 12/17/18 07:54 i assumed care at 7 am. patient resting in room. IUPC was at 10 mu/. SVE done - /0. discussed exam finding with patient. patient obviously disappointed and frustrated. long discussion with patient about labor course. IUPC in place. contractions have not been adequate for the last several hours. will increase pitocin until adequate. will continue changing position. blood pressures stable. will reexamine 1-2 hours after patient adequate. discussed indications for c section. low urine output. fluid bolus given. will continue to follow closely. 12/17/18 10:19 patient complete and pushing. uring bloody but catheter feels like it is low. will remove catheter and replace post . contractions adequate. status reassuring. had episode of low blood pressure but is better now. used nitrous oxide for hip and pelvic discomfort and was able to do position changes. Indications for Delivery: Spontaneous Labor, Preeclampsia Severe Vaginal Delivery - Delivery Provider Delivery Physician/CNM: Pura Ramirez - Labor and Delivery Onset of Contractions Date: 12/16/18 Onset of Contractions Time: 13:00 Onset of Contractions Type: Augmented Rupture of Membranes Date: 12/16/18 Rupture of Membranes Time: 19:48 Rupture of Membranes Type: Artificial Amniotic Fluid Color: Clear (large amount fluid noted) Dilation Complete Date: 12/17/18 Dilation Complete Time: 10:08 Placenta Delivery Date: 12/17/18 Placenta Delivery Time: 11:06 Total Hours of Labor: 22 Non-surgical Procedures: Amniotomy, IUPC Laceration: Other (Specify) (vaginal sulcus) Repair: 3-0 Vaginal Sponge Count Correct: Yes Vaginal Needle Count Correct: Yes Vaginal Sweep Performed: Yes EBL: 200 Delivery Events: Nuchal Cord Delivery Comment: patient progressed to complete after adequate contractions and multiple position changes. decreased urine output but huang bulb was in urethra. head crowned for 15 minutes. - Medications Labor Augmentation/Induction Methods Used: Pitocin Labor Augmentation/Induction Indication: Other (Specify) (severe preeclampsia) Data LIGIA: 12/28/18 Gestational Age: 38 week(s) and 3 day(s) Palmer Delivery Date: 12/17/18 Delivery Time: 11:00 Sex of Infant: Male Score (1 Min): 6 Score (5 Min): 9 ICD10 Worksheet Patient Problems: Problems Problem Status Onset Chronic hypertension affecting Acute Normal labor and delivery Acute
[2018-12-17] MEDS: ACETAMINOPHEN 325 MG TAB PO PRN ×2 (12:09→17:54)
[2018-12-17] MEDS: LR 1,000 ML IV PRN (14:57)
[2018-12-17] MEDS: IBUPROFEN 600 MG TAB PO PRN (17:56)
--- NOTE | 2018-12-17 18:37 | OBPP ---
Progress Note Assessment/Plan: Assessment: PPD# 0 S/P Chronic hypertension with superimposed preeclampsia on magnesium blood pressures are stable good urine output breast feeding Plan: 12/17/18 18:35 Subjective/ Course: 12/17/18 18:36 patient is doing well. pain is well controlled. normal lochia. denies headache and changes in vision. good urine output. huang still in. tolerating magneisum. Objective: 12/17/18 06:45 12/17/18 05:50 Patient ABO/Rh B POSITIVE 12/16/18 16:45 Uric Acid 5.9 mg/dL (2.5-6.8) 12/17/18 05:50 Total Bilirubin 0.3 mg/dL (0.1-1.4) 12/16/18 16:45 Conjugated Bilirubin 0.0 mg/dL (0.0-0.5) 12/16/18 16:45 Unconjugated Bilirubin 0.3 mg/dL (0.0-1.1) 12/16/18 16:45 AST 25 IU/L (14-46) 12/17/18 05:50 ALT 31 IU/L (9-52) 12/17/18 05:50 Lactate Dehydrogenase 591 IU/L (313-618) 12/17/18 05:50 Temp Pulse Resp BP Pulse Ox 36.7 C 87 16 142/88 H 91 L 12/17/18 13:13 12/17/18 13:13 12/17/18 13:13 12/17/18 13:13 12/17/18 13:13
[2018-12-18 06:25] LABS: PLATELET COUNT 123 10^3/uL (150-400)
[2018-12-18] MEDS: ACETAMINOPHEN 325 MG TAB PO PRN ×4 (07:12→20:13)
[2018-12-18] MEDS: IBUPROFEN 600 MG TAB PO PRN ×4 (07:13→20:13)
[2018-12-18] MEDS: Mag Sulf 500 ML IV SCH (07:17)
--- NOTE | 2018-12-18 09:27 | OBPP ---
Progress Note Assessment/Plan: Assessment: 33 y/o PPD #1 s/p . Pt with Chronic HTN and superimposed pre eclampsia on MgSo4 Plan: Pt's BP is stable and she has great urine output. Will d/c MgSo4 at 24 hours post , which will be 11 am. Will observe BP and decide if she will need Labetalol PO. support and routine PPC when MgSo4 is d/c. 12/18/18 09:23 Subjective/ Course: 12/17/18 18:36 patient is doing well. pain is well controlled. normal lochia. denies headache and changes in vision. good urine output. huang still in. tolerating magneisum. 12/18/18 09:21 Pt is doing well this am. She is comfortable with only minor cramping, no nausea. She denies RIVAS, scotomata, or RUQ pain. She is working on breast feeding and pumping, and having a difficult time with the baby's latch, but overall he is doing well and resting by her side. Objective: 12/18/18 06:15 12/18/18 06:15 Patient ABO/Rh B POSITIVE 12/16/18 16:45 Uric Acid 5.9 mg/dL (2.5-6.8) 12/18/18 06:15 Total Bilirubin 0.3 mg/dL (0.1-1.4) 12/18/18 06:15 Conjugated Bilirubin 0.2 mg/dL (0.0-0.5) 12/18/18 06:15 Unconjugated Bilirubin 0.1 mg/dL (0.0-1.1) 12/18/18 06:15 AST 24 IU/L (14-46) 12/18/18 06:15 ALT 32 IU/L (9-52) 12/18/18 06:15 Lactate Dehydrogenase 630 IU/L (313-618) H 12/18/18 06:15 Temp Pulse Resp BP Pulse Ox 36.7 C 87 16 142/88 H 91 L 12/17/18 13:13 12/17/18 13:13 12/17/18 13:13 12/17/18 13:13 12/17/18 13:13 BP 128/90, 134/92, 121/81, 128/81, 133/90, 123/80, 134/81, Uterine Position/Fundal Height: Umbilicus -2 Uterine Tone: Firm Physical Exam - Physical Exam General Appearance: alert, no apparent distress Neck: non-tender, full range of motion, supple Respiratory: chest non-tender, lungs clear, normal breath sounds Cardiac/Chest: regular rate, rhythm Abdomen: normal bowel sounds Extremities: swelling (tr), Luz Elena's sign (neg)
--- NOTE | 2018-12-18 12:10 | POSTANESTH ---
Post Anesthetic Evaluation Cardiovascular Status: Normal, Stable, Similar to Pre-Op Cond Respiratory Status: Normal, Stable, Similar to Pre-op Cond. Level of Consciousness/Mental Status: Can Participate in Eval, Alert and Oriented Pain Control: Adequate, Prn Tx Ordered Nausea/Vomiting Control: Adequate, Prn Tx Ordered Complications Possibly Related to Anesthesia: None Noted Notes: Pt seen and examined. Back site c/d/i, no e/e/e. Denies n/v/RIVAS. Able to ambulate. Block has resolved completely, no apparent adverse effects from the anesthesia.
--- NOTE | 2018-12-18 20:00 | OBPP ---
Progress Note Assessment/Plan: Assessment: 33 y/o PPD #1 s/p . Pt with Chronic HTN and superimposed pre eclampsia s/p MgSo4 Plan: She has had consistently elevated Diastolic BP's in the high 90's now off MgSo4. We will start Labetalol 100 mg BID tonight and monitor closely. 12/18/18 09:23 12/18/18 19:58 Subjective/ Course: 12/17/18 18:36 patient is doing well. pain is well controlled. normal lochia. denies headache and changes in vision. good urine output. huang still in. tolerating magneisum. 12/18/18 09:21 Pt is doing well this am. She is comfortable with only minor cramping, no nausea. She denies RIVAS, scotomata, or RUQ pain. She is working on breast feeding and pumping, and having a difficult time with the baby's latch, but overall he is doing well and resting by her side. 12/18/18 19:57 Pt is doing well and happy to be off MgSo4. She has good pain control, no nausea or RIVAS, visual changes etc. Baby is struggling to eat and they are working on . Objective: 12/18/18 06:15 12/18/18 06:15 Patient ABO/Rh B POSITIVE 12/16/18 16:45 Uric Acid 5.9 mg/dL (2.5-6.8) 12/18/18 06:15 Total Bilirubin 0.3 mg/dL (0.1-1.4) 12/18/18 06:15 Conjugated Bilirubin 0.2 mg/dL (0.0-0.5) 12/18/18 06:15 Unconjugated Bilirubin 0.1 mg/dL (0.0-1.1) 12/18/18 06:15 AST 24 IU/L (14-46) 12/18/18 06:15 ALT 32 IU/L (9-52) 12/18/18 06:15 Lactate Dehydrogenase 630 IU/L (313-618) H 12/18/18 06:15 Temp Pulse Resp BP Pulse Ox 36.6 C 84 16 137/97 H 95 12/18/18 15:35 12/18/18 15:35 12/18/18 15:35 12/18/18 15:35 12/18/18 15:35 140/80-90's Uterine Position/Fundal Height: Umbilicus -2 Uterine Tone: Firm
[2018-12-18] MEDS: LABETALOL HCL 100 MG TAB PO SCH (20:14)
[2018-12-19] MEDS: IBUPROFEN 600 MG TAB PO PRN ×4 (02:21→19:51)
[2018-12-19] MEDS: ACETAMINOPHEN 325 MG TAB PO PRN ×4 (02:21→19:51)
[2018-12-19] MEDS: DOCUSATE SODIUM 100 MG CAP PO PRN ×2 (08:24→19:51)
[2018-12-19] MEDS: LABETALOL HCL 100 MG TAB PO SCH (08:57)
[2018-12-19] MEDS ORDERED: LABETALOL HCL 100 MG TAB PO ONE (10:28)
--- NOTE | 2018-12-19 11:18 | OBPP ---
Progress Note Assessment/Plan: Assessment: PPD# 2 S/P Chronic hypertension with superimposed preeclampsia s/p magnesium blood pressures still elevated on labetalol 100 mg bid - increased to 200 mg continued inpatient adjusting blood pressure meds good urine output breast feeding / pumping -baby diagnosed with cleft palate so pumping RH+/RI 12/19/18 11:09 Subjective/ Course: 12/17/18 18:36 patient is doing well. pain is well controlled. normal lochia. denies headache and changes in vision. good urine output. huang still in. tolerating magneisum. 12/18/18 09:21 Pt is doing well this am. She is comfortable with only minor cramping, no nausea. She denies RIVAS, scotomata, or RUQ pain. She is working on breast feeding and pumping, and having a difficult time with the baby's latch, but overall he is doing well and resting by her side. 12/18/18 19:57 Pt is doing well and happy to be off MgSo4. She has good pain control, no nausea or RIVAS, visual changes etc. Baby is struggling to eat and they are working on . 12/19/18 11:18 patient is doing well. pain is well controlled. normal lochia. has a mild headache and denies changes in vision. baby was diagnosed with cleft palate. are working on pumping and plan to meet with cleft palate clinic at [facility] tomorrow. blood pressure still elevated on 100 labetalol bid. will increase to 200 bid and continue observations. mood good. Objective: 12/18/18 06:15 12/18/18 06:15 Patient ABO/Rh B POSITIVE 12/16/18 16:45 Uric Acid 5.9 mg/dL (2.5-6.8) 12/18/18 06:15 Total Bilirubin 0.3 mg/dL (0.1-1.4) 12/18/18 06:15 Conjugated Bilirubin 0.2 mg/dL (0.0-0.5) 12/18/18 06:15 Unconjugated Bilirubin 0.1 mg/dL (0.0-1.1) 12/18/18 06:15 AST 24 IU/L (14-46) 12/18/18 06:15 ALT 32 IU/L (9-52) 12/18/18 06:15 Lactate Dehydrogenase 630 IU/L (313-618) H 12/18/18 06:15 Temp Pulse Resp BP Pulse Ox 36.8 C 75 14 128/89 H 95 12/18/18 20:16 12/19/18 10:40 12/18/18 20:16 12/19/18 10:40 12/18/18 20:16 Physical Exam - Physical Exam Neck: non-tender, full range of motion Respiratory: chest non-tender, lungs clear, normal breath sounds Cardiac/Chest: normal peripheral pulses, regular rate, rhythm Abdomen: normal bowel sounds, non-tender, other (fundus firm and non tender) Extremities: normal range of motion, non-tender, normal inspection, normal capillary refill Skin: normal color, warm/dry Neuro/Psych: no motor/sensory deficits, alert, normal mood/affect, oriented x 3
[2018-12-19] MEDS: LABETALOL HCL 200 MG TAB PO SCH (19:52)
[2018-12-20] MEDS: ACETAMINOPHEN 325 MG TAB PO PRN ×2 (01:46→08:54)
[2018-12-20] MEDS: IBUPROFEN 600 MG TAB PO PRN (01:46)
[2018-12-20] MEDS: LABETALOL HCL 200 MG TAB PO SCH (08:51)
[2018-12-20 11:09] VITALS: BP 143/99
--- NOTE | 2018-12-20 12:25 | OBPP ---
Progress Note Assessment/Plan: Assessment: PPD#3 S/P Chronic hypertension with superimposed preeclampsia s/p magnesium blood pressures still elevated on labetalol 200 mg bid which was increased yesterday. I'd like to have her inc to 300BID and see her back for BP check in office in 2- 3 days. She has a home cuff that has been reading quite accurately and she can check her pressures TID at home. Will call if approaching severe range. breast feeding / pumping -baby diagnosed with cleft palate so pumping RH+/RI Subjective/ Course: 12/17/18 18:36 patient is doing well. pain is well controlled. normal lochia. denies headache and changes in vision. good urine output. huang still in. tolerating magneisum. 12/18/18 09:21 Pt is doing well this am. She is comfortable with only minor cramping, no nausea. She denies RIVAS, scotomata, or RUQ pain. She is working on breast feeding and pumping, and having a difficult time with the baby's latch, but overall he is doing well and resting by her side. 12/18/18 19:57 Pt is doing well and happy to be off MgSo4. She has good pain control, no nausea or RIVAS, visual changes etc. Baby is struggling to eat and they are working on . 12/19/18 11:18 patient is doing well. pain is well controlled. normal lochia. has a mild headache and denies changes in vision. baby was diagnosed with cleft palate. are working on pumping and plan to meet with cleft palate clinic at [facility] tomorrow. blood pressure still elevated on 100 labetalol bid. will increase to 200 bid and continue observations. mood good. 12/20/18 13:15 Feeling great - ready for home. Acknoleges that her pressures remain a little high this AM even on 200 BID. OK with increasing to 300, feels very comfortable checking her BP at home and letting us know about higher pressures. No new s/sx of PIH. Ankles are swollen. Pain minimal. Objective: 12/18/18 06:15 12/18/18 06:15 Patient ABO/Rh B POSITIVE 12/16/18 16:45 Uric Acid 5.9 mg/dL (2.5-6.8) 12/18/18 06:15 Total Bilirubin 0.3 mg/dL (0.1-1.4) 12/18/18 06:15 Conjugated Bilirubin 0.2 mg/dL (0.0-0.5) 12/18/18 06:15 Unconjugated Bilirubin 0.1 mg/dL (0.0-1.1) 12/18/18 06:15 AST 24 IU/L (14-46) 12/18/18 06:15 ALT 32 IU/L (9-52) 12/18/18 06:15 Lactate Dehydrogenase 630 IU/L (313-618) H 12/18/18 06:15 Temp Pulse Resp BP Pulse Ox 36.3 C 82 16 143/99 H 95 12/20/18 11:05 12/20/18 11:05 12/20/18 11:05 12/20/18 11:05 12/20/18 11:05
[2018-12-20] MEDS ORDERED: LABETALOL HCL 200 MG TAB PO SCH (13:00)
--- NOTE | 2018-12-20 13:05 | OBGCSDC ---
General Delivery Information - General Info : 2 Para: 1 Abortions: 1 Type: Vaginal L&D Analgesia/Anesthesia Type: Epidural, Nitrous Admission Date: 12/16/18 Labs: Patient ABO/Rh B POSITIVE 12/16/18 16:45 Hct 35.0 % (38.0-47.0) L 12/18/18 06:15 Temp Pulse Resp BP Pulse Ox 12/20/18 11:05 36.3 C 82 16 143/99 H 95 12/20/18 09:00 138/102 H 12/20/18 08:51 84 138/102 H 12/19/18 23:38 82 16 138/89 H 12/19/18 19:52 80 141/91 H 12/19/18 19:41 36.1 C 87 16 141/91 H 95 12/19/18 17:07 75 142/100 H - Hospital Course Antepartum: Likely Chronic HTN-stopped Labetalol 07/2018-was started on it in first trimester by midwives and noncompliant; elev BPs in second trimester 130-140/80- 90s; growth u/s in third trimester with EFW 31% and normal fluid PCOS, infertility and elevaterd prolactin-conceived spontaneously AMA with neg NIPT and normal anatomy scan GBS negative Rubella status unknown 12/16/18 20:04 Intrapartum: 12/16/18 20:05 Pt is comfortable, s/p epidural with no complaints. Denies any HAs, visual changes, or any RUQ/epigastric pain. 12/16/18 22:31 Pt is c/o pain in her lower abdomen with ctx's and is still feeling pressure 12/17/18 02:03 Pt is more comfortable now after bolus. She is feeling dizzy with lower BPs and has some nausea. Still notes rectal pressure, but only with ctx's. Denies any HAs, visual changes or RUQ pain. 12/17/18 03:34 Pt is sleeping now. 12/17/18 06:02 Pt is c/o pain in lower abdomen with her ctx's. She also feels cold and groggy. States she "is over this" and questions how much longer it will take. Denies any HAs, visual changes or RUQ/epigastric pain but notes she is "forgetting to breath" and feels short of breath. 12/17/18 07:54 i assumed care at 7 am. patient resting in room. IUPC was at 10 mu/. SVE done - . discussed exam finding with patient. patient obviously disappointed and frustrated. long discussion with patient about labor course. IUPC in place. contractions have not been adequate for the last several hours. will increase pitocin until adequate. will continue changing position. blood pressures stable. will reexamine 1-2 hours after patient adequate. discussed indications for c section. low urine output. fluid bolus given. will continue to follow closely. 12/17/18 10:19 patient complete and pushing. uring bloody but catheter feels like it is low. will remove catheter and replace post . contractions adequate. status reassuring. had episode of low blood pressure but is better now. used nitrous oxide for hip and pelvic discomfort and was able to do position changes. : 12/17/18 18:36 patient is doing well. pain is well controlled. normal lochia. denies headache and changes in vision. good urine output. huang still in. tolerating magneisum. 12/18/18 09:21 Pt is doing well this am. She is comfortable with only minor cramping, no nausea. She denies RIVAS, scotomata, or RUQ pain. She is working on breast feeding and pumping, and having a difficult time with the baby's latch, but overall he is doing well and resting by her side. 12/18/18 19:57 Pt is doing well and happy to be off MgSo4. She has good pain control, no nausea or RIVAS, visual changes etc. Baby is struggling to eat and they are working on . 12/19/18 11:18 patient is doing well. pain is well controlled. normal lochia. has a mild headache and denies changes in vision. baby was diagnosed with cleft palate. are working on pumping and plan to meet with cleft palate clinic at [facility] tomorrow. blood pressure still elevated on 100 labetalol bid. will increase to 200 bid and continue observations. mood good. Vaginal - Delivery Provider Delivery Physician/CNM: Pura Ramirez - Diagnosis Labor: Augmented Rupture of Membranes Type: Artificial Amniotic Fluid Color: Clear (large amount fluid noted) Laceration: Other (Specify) (vaginal sulcus) Repair: 3-0 Delivery Events: Nuchal Cord - Procedures Non-surgical Procedures: Amniotomy, IUPC - Delivery Non-surgical Procedures: Amniotomy, IUPC EBL: 200 [place] Data LIGIA: 12/28/18 Gestational Age: 38 week(s) and 6 day(s) [place] Delivery Date: 12/17/18 Delivery Time: 11:00 Sex of : Male [place] Weight (gm): 2980 g Score (1 Min): 6 Score (5 Min): 9 Discharge Information - Discharge Information Prescriptions: Labetalol HCl [Trandate 200 mg (*)] 300 mg PO BID #60 tab Condition: Good Instruction/Follow Up: See Instruction Sheet, One Week (BP check in 2-3 days, Mood check in 2-3 weeks, routine PP visit in 6 wks.), Two Weeks, Six Weeks
== END 2018-12-20 15:51 | disposition home or self-care (01) | DRG 807 ==
LOC: FLD 16:10 → FOB 12-18 11:47
PROVIDERS: ADMIT Obstetrics & Gynecology; ATTEND Obstetrics & Gynecology
PROC: 0HQ9XZZ Repair Perineum Skin, External Approach (ICD-10-PCS; principal; 2018-12-16)
PROC: 10E0XZZ Delivery of Products of Conception, External Approach (ICD-10-PCS; principal; 2018-12-16)
PROC: 10907ZC Drainage of Amniotic Fluid, Therapeutic from Products of Conception, Via Natural or Artificial Opening (ICD-10-PCS; principal; 2018-12-16)
DX: O10.919 Unspecified pre-existing hypertension complicating pregnancy, unspecified trimester (principal); O70.0 First degree perineal laceration during delivery; O69.81X0 Labor and delivery complicated by cord around neck, without compression, not applicable or unspecified; O99.283 Endocrine, nutritional and metabolic diseases complicating pregnancy, third trimester; E28.2 Polycystic ovarian syndrome; Z37.0 Single live birth
CPT/HCPCS: J0360; J0610; J2370; J2405; J2590; J3105; J3475